=== PATIENT | female | born 1985 | race Asian ===

== ENCOUNTER 2016-11-28 14:31 | Inpatient (IN) | payer OTHER ==
[~2016-11-28] VITALS: Ht 149.9 cm; Wt 62.0 kg
[2016-11-28] MEDS ORDERED: LACTATED RINGER'S 1000 ML IV STA (15:57)
[2016-11-28] MEDS ORDERED: LR 1,000 ML IV SCH ×2 (15:57)
[2016-11-28] MEDS ORDERED: OXYTOCIN DRIP 30 UNITS in APPROPRIATE DILUENT 1 EA IV SCH (16:00)
[2016-11-28] MEDS ORDERED: IRON50TA PO (16:07)
[2016-11-28] MEDS ORDERED: PRENTAB9 PO (16:07)
[2016-11-28 16:37] LABS: MEAN CORPUSCULAR HGB CONC 34.5 g/dl (32.0-36.5); MEAN CORPUSCULAR VOLUME 86.8 fl (80.0-96.0); RED CELL DISTRIBUTION WIDTH 14.4 % (11.5-14.5); WHITE BLOOD COUNT 6.9 K/mm3 (4.0-10.0)
[2016-11-28] MEDS ORDERED: FENTANYL 2MCG/ML ROPIVACAINE 0.2% IN 0.9% NACL 200ML IVBAG As Ordered ONE (21:17)
[2016-11-28] MEDS ORDERED: EPIDURAL/PCA KEYS XX PRN (21:24)
[2016-11-28] MEDS ORDERED: REFRIGERATOR IV KEYS XX PRN (21:24)
[2016-11-28] MEDS ORDERED: LACTATED RINGER'S 1000 ML IV PRN (21:24)
[2016-11-28] MEDS ORDERED: ONDANSETRON 4MG/2ML VIAL (J2405) IV PRN (21:24)
[2016-11-28] MEDS ORDERED: FENTANYL/ROPIVACAINE/NACL BAG 200 ML EPIDURAL SCH (21:24)
[2016-11-28] MEDS ORDERED: EPIDURAL COMMENT XX SCH (21:24)
[2016-11-28] MEDS ORDERED: diphenhydrAMINE INJ 50MG/ML VIAL (J1200) IV PRN (21:24)
[2016-11-28] MEDS ORDERED: ePHEDrine SULFATE 25 MG/5 ML(5MG/ML) SYRINGE IV PRN (21:24)
[2016-11-28] MEDS ORDERED: NALOXONE INJ 0.4 MG/1 ML VIAL (J2310) IV PRN (21:24)
[2016-11-29] MEDS ORDERED: ACETAMINOPHEN 500 MG TAB PO ONE (00:30)
[2016-11-29] MEDS ORDERED: MOM 30ML SUSPENSION UDC PO PRN (02:00)
[2016-11-29] MEDS ORDERED: ONDANSETRON 4MG/2ML VIAL (J2405) IV PRN (02:00)
[2016-11-29] MEDS ORDERED: PROMETHAZINE 25 MG TAB PO PRN (02:00)
[2016-11-29] MEDS ORDERED: IBUPROFEN 800 MG TAB PO PRN (02:00)
[2016-11-29] MEDS ORDERED: METHYLERGONOVINE MALEATE 0.2 MG TAB PO PRN (02:00)
[2016-11-29] MEDS ORDERED: DOCUSATE SODIUM 100 MG CAP PO PRN (02:00)
[2016-11-29] MEDS ORDERED: RHOGAM 300 MCG (1500 IU) INJ (J2790) IM SCH (02:00)
[2016-11-29] MEDS ORDERED: DIBUCAINE 1% OINTMENT 30GM TOP PRN (02:00)
[2016-11-29] MEDS ORDERED: MEASLES,MUMPS,RUBELLA VACCINE INJ (MMR-II) (90707) SC SCH (02:00)
[2016-11-29 06:27] VITALS: BP 92/56
[2016-11-29] MEDS: PRENATAL VITAMINS CHEWABLE TABLET PO SCH (09:05)
[2016-11-29 18:21] VITALS: BP 115/83
[2016-11-29] MEDS: ACETAMINOPHEN 500 MG TAB PO PRN (20:30)
[2016-11-30 06:00] VITALS: BP 102/70
[2016-11-30] MEDS: PRENATAL VITAMINS CHEWABLE TABLET PO SCH (07:46)
[2016-11-30] MEDS: ACETAMINOPHEN 500 MG TAB PO PRN (15:13)
[2016-11-30 18:38] VITALS: BP 130/86
[2016-12-01 05:32] VITALS: BP 125/84
--- NOTE | 2016-12-01 08:15 | IPNPDOC ---
Text Note Date of Service The patient was seen on 12/01/16. NOTE PPD#2 s/p S: Pt doing well. Pain well controlled, lochia decreasing/minimal, voiding spontaneously, tolerating a regular diet, ambulating without difficulty. No f/c /n/v/LOPEZ. Breast feeding. O: normotensive, nml HR, afebrile H: RRR no m/g/r L: CTA b/l no w/c/r/r Abd: soft, appropriately tender, and FF at U-2/fundus nontender Ext: no c/c/e A/P: S/p , PPD#1. Hemodynamically stable, afebrile, good pain control. -Routine care -discharge Sessions VS,Bruno, I+O VSBruno I+O Vital Signs Date Time Temp Pulse Resp B/P (MAP) Pulse Ox O2 Delivery O2 Flow Rate FiO2 12/01/16 05:32 98.9 92 20 125/84 (98) Room Air 11/30/16 06:00 98 SESSIONS,ZARA Campuzano MD Dec 01, 2016 08:15
[2016-12-01] MEDS: PRENATAL VITAMINS CHEWABLE TABLET PO SCH (08:32)
--- NOTE | 2016-12-01 08:33 | DS.PDOC ---
Discharge Summary General Date of Admission Nov 28, 2016 at 14:31 Date of Discharge [id number] Discharge Summary PROCEDURES PERFORMED DURING STAY: Normal vaginal delivery ADMITTING DIAGNOSIS: 1. Induction for pending postdates, controlled gestational diabetes DISCHARGE DIAGNOSES: 1. Healthy infant HOSPITAL COURSE: Admitted for uncomplicated induction. See delivery note. DISCHARGE MEDICATIONS: Motrin, Tylenol, Colace, Lanolin Physical exam: see note from this morning LABORATORY DATA: Please see below. ACTIVITY: as tolerated. Nothing in vagina for 6 weeks. DIET: regular DISPOSITION:stable TIME SPENT ON DISCHARGE: Greater than 15 minutes. Sessions Vital Signs/I&Os Vital Signs Date Time Temp Pulse Resp B/P (MAP) Pulse Ox O2 Delivery O2 Flow Rate FiO2 12/01/16 05:32 98.9 92 20 125/84 (98) Room Air 11/30/16 06:00 98 Discharge Medications Scheduled Multivitamins/ ( 27-0.8 mg) 1 Tab Tab, 1 TAB PO DAILY, (Reported ) Miscellaneous Medications Ferrous Sulfate (Iron (Ferrous Sulfate)) 50 Mg Tab, 350 MG PO, (Reported) Allergies Coded Allergies: No Known Allergies (Unverified , 11/28/16) SESSIONS,ZARA Campuzano MD Dec 01, 2016 08:33
[2016-12-01] MEDS ORDERED: IBUP-1114 PO (08:52)
[2016-12-01] MEDS ORDERED: COLA100C5 PO (08:52)
[2016-12-01] MEDS ORDERED: ACET50TA PO (08:52)
[2016-12-01] MEDS ORDERED: NUPE1OIN2 TOP (08:52)
== END 2016-12-01 11:30 | disposition home or self-care (01) | DRG 774 ==
LOC: M LDI 14:31 → M OBS 11-29 04:23
PROVIDERS: ADMIT Student in an Organized Health Care Education/Training Program; ATTEND Student in an Organized Health Care Education/Training Program
PROC: 10907ZC Drainage of Amniotic Fluid, Therapeutic from Products of Conception, Via Natural or Artificial Opening (ICD-10-PCS; 2016-11-28)
PROC: 3E033VJ Introduction of Other Hormone into Peripheral Vein, Percutaneous Approach (ICD-10-PCS; 2016-11-28)
PROC: 10E0XZZ Delivery of Products of Conception, External Approach (ICD-10-PCS; principal; 2016-11-29)
PROC: 0KQM0ZZ Repair Perineum Muscle, Open Approach (ICD-10-PCS; 2016-11-29)
DX: O48.0 Post-term pregnancy (principal); O75.2 Pyrexia during labor, not elsewhere classified; O24.420 Gestational diabetes mellitus in childbirth, diet controlled; Z3A.40 40 weeks gestation of pregnancy; O70.1 Second degree perineal laceration during delivery; Z37.0 Single live birth